=== PATIENT | male | born 1970 ===

== ENCOUNTER 2016-09-23 07:35 | Emergency (ER) | payer SELFPAY ==
[2016-09-23] MEDS ORDERED: Amoxicillin-Clav 875-125 mg Tab PO STA (07:45)
[2016-09-23] MEDS ORDERED: Oxycodone/Acetaminophen 5/325 mg Tab PO STA (07:45)
[2016-09-23 07:57] VITALS: BP 165/101; PULSE 65; RESP 16; TEMP 98.4; O2SAT 100
--- NOTE | 2016-09-23 08:23 | C.PDOC ---
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 Pt denies known trauma or injury, fever, chills, headache, dizziness, vertigo, ear discharge, tinnitus, drooling, visual changes , focal deficits. Ambulate to Ed for evaluation, appears in pain. Time Seen by Provider: 09/23/16 07:41 Chief Complaint (Nursing): ENT Problem History Per: Patient Past Medical History Reviewed: Historical Data, Nursing Documentation, Vital Signs Vital Signs: Last Vital Signs Temp 98.4 F 09/23/16 07:38 Pulse 65 09/23/16 07:38 Resp 16 09/23/16 07:38 BP 165/101 H 09/23/16 07:38 Pulse Ox 100 09/23/16 08:58 - Medical History PMH: No Chronic Diseases Family History: States: No Known Family Hx - Social History Hx Alcohol Use: No Hx Substance Use: No - Immunization History Hx Tetanus Toxoid Vaccination: No Hx Influenza Vaccination: No Hx Pneumococcal Vaccination: No Review Of Systems Except As Marked, All Systems Reviewed And Found Negative. Constitutional: Negative for: Fever, Chills Eyes: Negative for: Vision Change ENT: Positive for: Ear Pain. Negative for: Ear Discharge, Nose Discharge, Nose Congestion, Mouth Swelling, Throat Pain, Throat Swelling Cardiovascular: Negative for: Chest Pain, Palpitations, Edema, Light Headedness Respiratory: Negative for: Cough, Shortness of Breath, Wheezing Gastrointestinal: Negative for: Nausea, Vomiting Musculoskeletal: Negative for: Neck Pain, Back Pain Skin: Negative for: Rash, Bruising Neurological: Negative for: Weakness, Numbness, Altered Mental Status, Headache , Dizziness Physical Exam - Physical Exam Appears: Well, Non-toxic, No Acute Distress Skin: Normal Color, Warm, No Rash Head: Normacephalic Eye(s): bilateral: PERRL Ear(s): Left: TM Erythema, Other (mild ear canal erythema), Right: Normal Nose: No Flaring Oral Mucosa: Moist, No Drooling Tongue: Normal Appearing Throat: No Erythema, No Exudate, No Drooling Neck: Supple Cardiovascular: No JVD Extremity: Normal ROM, No Tenderness, No Pedal Edema, No Deformity Neurological/Psych: Oriented x3, Normal Speech, Normal Motor, Normal Sensation, Normal Reflexes ED Course And Treatment O2 Sat by Pulse Oximetry: 100 Pulse Ox Interpretation: Normal Progress Note: On re-eavluation, pt is afebrile, hemodynamicaly stable. Non- toxic. Pt reports, moderate improvement in left earache after ED tx. ENT: Exam c/w left otitis media. NO mastoid tenderness. neck: Supple, (-) JVD, (-) carotid bruits. Lungs: CTA B/L, BS equal B/L. Abd: benign. Neurologicaly intact. Pt advised and ref. to f/[facility] ENT in 2-3 days for re-eavl. return to ED if any worsening or new changes. Disposition Counseled Patient/Family Regarding: Diagnosis, Need For Followup - Disposition Referrals: Vj Armendariz MD [Staff Provider] - Disposition: HOME/ ROUTINE Disposition Time: 08:54 Condition: STABLE Additional Instructions: Avoid water exposure to left ear Take medication as prescribed Follow up with ENT in 1-2 days for re-evaluation. return to ED if any worsening or new changes. Prescriptions: Amoxicillin/Clavulanate [Augmentin 875 MG-125 MG] 1 tab PO BID #14 tab oxyCODONE/Acetaminophen [Percocet 5/325 mg Tab] 1 tab PO BID PRN #7 tab PRN Reason: Pain Prednisone [Deltasone] 20 mg PO DAILY #3 tablet Instructions: Otitis Media (ED) - Clinical Impression Clinical Impression: Otitis media
== END 2016-09-23 09:10 | disposition home or self-care (01) ==
LOC: C.ER 07:35
DX: H66.92 Otitis media, unspecified, left ear (principal)